=== PATIENT | female | born 1950 | race Caucasian/White ===

== ENCOUNTER 2017-05-29 14:31 | Inpatient (IN) | payer OTHER ==
[~2017-05-29] VITALS: Ht 161.3 cm; Wt 109.6 kg
[~2017-05-29 14:31] MED LIST: ARICEPT5 MG PO; ASPIR 8181 MG PO; CO Q1060 MG PO; CYMBALTA30 MG PO; FUROSEMIDE40 MG PO; IRBESARTAN150 MG PO; METFORMIN HCL500 M2 PO; METOPROLOL TART50 MG PO; MONTELUKAST SOD10 MG PO; PRO AIR INH; PROBIOTIC & AC1 EACH PO; TOVIAZ8 MG PO
--- OUTSIDE RECORDS SUMMARY | 2017-05-29 14:34 | XMS REPORT | Clinical Summary ---
Author Author [facility] Organization [facility] Address Unknown Phone Unavailable Care Team Providers Care Senior Contract Specialist Name Role Phone Yessenia Marquez MD PCP Allergies Active Allergy Reactions Severity Noted Date Comments Codeine GI Intolerance 02/11/2017 Penicillins Rash Low 02/11/2017 Sulfa (Sulfonamide Rash Low 02/11/2017 Antibiotics) Current Medications Prescription Sig. Disp. Refills Start End Date Status Date busPIRone (BUSPAR) 7.5 MG Take 7.5 mg by mouth once 5 01/15/20 Active tablet daily. 17 cefuroxime (CEFTIN) 500 Take 500 mg by mouth 0 12/21/19 Active MG tablet every 12 (twelve) hours. 17 donepezil (ARICEPT) 5 MG 02/07/20 Active tablet 17 doxazosin (CARDURA) 4 MG Take 4 mg by mouth once 0 11/28/19 Active tablet daily. 17 DULoxetine (CYMBALTA) 60 Take 60 mg by mouth 3 01/09/20 Active MG capsule nightly. 17 TOVIAZ 8 mg tablet TAKE ONE (1) TABLET(S) BY 2 11/07/19 Active extended release 24 hr MOUTH DAILY. 17 irbesartan (AVAPRO) 150 Take 150 mg by mouth once 3 01/15/20 Active MG tablet daily. 17 metoprolol succinate XL Take 50 mg by mouth 5 01/15/20 Active (TOPROL-XL) 50 mg 24 hr nightly. 17 tablet phenazopyridine TAKE 1 TABLET BY MOUTH 3 0 12/21/19 Active (PYRIDIUM) 100 MG tablet TIMES A DAY AFTER MEALS 17 tolterodine (DETROL) 1 MG Take 1 mg by mouth once 0 01/24/20 Active tablet daily. 17 Active Problems No known active problems Encounters Date Type Specialty Care Team Description 04/24/2017 Telephone Obstetrics and Gynecology Wale Bailey MD 03/14/2017 Office Visit Urogynecology Wale Bailey MD Rectocele (Primary Dx); Mixed stress and urge urinary incontinence; Enterocele 02/11/2017 Hospital Radiology Ignacio Adrian MD Encounter 02/11/2017 Office Visit Neurosurgery Ignacio Adrian MD Status post lumbar spinal fusion (Primary Dx); Stress incontinence in female 02/11/2017 Procedure Pass Radiology 02/11/2017 Ancillary Radiology Ignacio Adrian MD Orders after 05/28/2016 Social History Tobacco Use Types Packs/Day Years Used Date Never Smoker Smokeless Tobacco: Never Used Alcohol Use Drinks/Week oz/Week Comments No Sex Assigned at Date Recorded Not on file Last Filed Vital Signs Vital Sign Reading Time Taken Blood Pressure 136/72 03/14/2017 10:44 AM TRAVEL MANAGER Pulse 80 03/14/2017 10:44 AM TRAVEL MANAGER Temperature 36.4 C (97.6 F) 03/14/2017 10:44 AM TRAVEL MANAGER Respiratory Rate - - Oxygen Saturation - - Inhaled Oxygen - - Concentration Weight 107 kg (235 lb) 03/14/2017 10:44 AM TRAVEL MANAGER Height 160 cm (5' 3") 03/14/2017 10:44 AM TRAVEL MANAGER Body Mass Index 41.63 03/14/2017 10:44 AM TRAVEL MANAGER Plan of Treatment Date Type Specialty Care Team Description 07/23/2017 Clinical Urogynecology Support 07/23/2017 Procedure visit Urogynecology Wale Bailey MD [address] [facility] [address] [place] [address] [phone] 08/12/2017 Surgery Obstetrics and Gynecology Wale Bailey MD COLPOPEXY, SACROSPINOUS [address] [facility] [address] REPAIR, [address] [place] [address] PROCEDURE [phone] 08/12/2017 Procedure Pass Obstetrics and Gynecology 08/12/2017 [facility] Obstetrics and Gynecology Wale Bailey MD Encounter [address] [facility] [address] [place] [address] [phone] Health Maintenance Due Date Last Done Comments PAP SMEAR 1973 COLONOSCOPY 2002 MAMMOGRAM 2002 ZOSTER VACCINE 2012 INFLUENZA VACCINE 09/24/2017 Results * POC urinalysis dipstick (03/14/2017 11:11 AM) Component Value Ref Range Color urine, POC Dark Yellow Clarity urine, POC Clear Glucose urine, POC Negative Negative Bilirubin urine, POC Negative Negative Ketones urine, POC Negative Negative Specific gravity urine, 1.010 1.005 - 1.030 POC Blood urine, POC Negative Negative pH urine, POC 5.0 5.0, 5.5, 6.0, 6.5, 7.0, 7.5, 8.0, 8.5 Protein urine, POC Negative Negative Urobilinogen urine, POC <2.0 <2.0 Nitrite urine, POC Negative Negative Leukocyte esterase urine, Trace (A) Negative POC Specimen Performing Laboratory Urine * Measure post void residual (03/14/2017) Component Value Ref Range Total volume, urine 15 ML * MRI Spine External Study (01/15/2017 12:41 PM) Specimen Performing Laboratory [address] [address] Narrative This exam was not acquired at a [facility] facility and has not been interpreted by a [facility] Provider.The exam was imported into our imaging system for comparisons purposes. after 05/28/2016 Insurance Payer Benefit Subscriber ID Type Phone Address Plan / Group AETNA AETNA xxxxxxxxxx HMO HMO,POS,EP O, [place] [address] Home:
--- OUTSIDE RECORDS SUMMARY | 2017-05-29 14:35 | XMS REPORT | Clinical Summary ---
Author Author [facility]ed [facility] Organization [facility] Address Unknown Phone Unavailable Care Team Providers Care Mill Dresser Name Role Phone Yessenia Marquez MD PCP [...] Taken Blood Pressure 136/72 03/14/2017 10:44 AM LAN MANAGER Pulse 80 03/14/2017 10:44 AM LAN MANAGER Temperature 36.4 C (97.6 F) 03/14/2017 10:44 AM LAN MANAGER Respiratory Rate - - Oxygen Saturation - - Inhaled Oxygen - - Concentration Weight 107 kg (235 lb) 03/14/2017 10:44 AM LAN MANAGER Height 160 cm (5' 3") 03/14/2017 10:44 AM LAN MANAGER Body Mass Index 41.63 03/14/2017 10:44 AM LAN MANAGER Plan of Treatment Date Type Specialty Care Team Description 07/23/2017 Clinical Urogynecology Support 07/23/2017 Procedure visit Urogynecology Wale Bailey MD [address] [facility] [address] [place] [address] [phone] 08/12/2017 Surgery Obstetrics and Gynecology Wale Bailey MD COLPOPEXY, SACROSPINOUS [address] [facility] [address] REPAIR, [address]/ [place] [address] PROCEDURE [phone] 08/12/2017 Procedure Pass Obstetrics and Gynecology 08/12/2017 [facility] Obstetrics and Gynecology Wale Bailey MD Encounter [address] [facility] [address] [place] [address] [phone] Health Maintenance Due Date Last Done Comments [...] Study (01/15/2017 12:41 PM) Specimen Performing Laboratory [address] [address] Narrative This exam was not acquired at a [facility] facility and has not been interpreted by a [facility] Provider.The exam was imported into our imaging system for comparisons purposes. after 05/28/2016 Insurance Payer Benefit Subscriber ID Type Phone Address Plan / Group AETNA AETNA xxxxxxxxxx HMO HMO,POS,EP O, [place] [address] Home:
--- NOTE | 2017-05-29 15:14 | Diagnostic Imaging Report ---
PROCEDURE: A single AP view of the chest. COMPARISON: None. INDICATIONS: syncope FINDINGS: Lines/tubes: None. Lungs: The lungs are well inflated and clear. There is no evidence of pneumonia or pulmonary edema. Pleura: There is no pleural effusion or pneumothorax. Heart and mediastinum: The heart and the mediastinum are unremarkable. Bones: No acute bony abnormality. IMPRESSION: No acute cardiopulmonary disease. Dictated by: Sher Leon M.D. on 05/29/2017 at 15:14 Electronically approved by: Sher Leon M.D. on 05/29/2017 at 15:14
[2017-05-29 15:49] LABS: ALANINE AMINOTRANSFERASE 23 IU/L (0-55); ALBUMIN 3.7 g/dL (3.5-5.0); ALKALINE PHOSPHATASE 85 IU/L (40-150); BLOOD UREA NITROGEN 13 mg/dL (7-26); BUN/CREATININE RATIO 19 (6-25); CALCIUM 9.6 mg/dL (8.4-10.2); CARBON DIOXIDE 22 mmol/L (22-29); CHLORIDE 103 mmol/L (98-107); CREATINE KINASE 58 IU/L (29-168); CREATININE, SERUM 0.67 mg/dL (0.57-1.11); EST GLOMERULAR FILTRATION RATE > 60 ML/MIN (60-); GLUCOSE 95 mg/dL (74-118); SODIUM 136 mmol/L (136-145)
[2017-05-29 15:56] LABS: BILIRUBIN,URINE NEGATIVE (NEGATIVE); CLARITY,URINE CLEAR (CLEAR); COLOR,URINE YELLOW (YELLOW); KETONES,URINE NEGATIVE (NEGATIVE); LEUKOCYTE ESTERASE ,URINE TRACE (NEGATIVE); NITRITE,URINE NEGATIVE (NEGATIVE); PROTEIN,URINE DIPSTICK NEGATIVE (NEGATIVE); URINE UROBILINOGEN 0.2 mg/dL (0.2 - 1)
[2017-05-29 16:09] LABS: BACTERIA,URINE FEW /HPF; EPITHELIAL CELLS,URINE FEW /LPF; WBC,URINE (MAN) 0-5 /HPF (0-5)
[2017-05-29 16:15] LABS: BASOPHILS # (AUTO) 0.1 (0.0-0.1); BASOPHILS % 0.6 % (0.0-1.0); EOSINOPHILS # (AUTO) 0.2 (0.0-0.4); EOSINOPHILS % 2.3 % (0.0-6.0); HEMATOCRIT 39.3 % (34.2-44.1); HEMOGLOBIN 13.3 g/dL (12.0-16.0); LYMPHOCYTES # (AUTO) 1.6 (1.0-3.2); MEAN CORPUSCULAR HEMOGLOBIN 29.2 pg (28-32); MEAN CORPUSCULAR HGB CONC 33.8 g/dL (31-35); MEAN CORPUSCULAR VOLUME 86.2 fL (81-99); MONOCYTES # (AUTO) 0.7 (0.2-0.8); MONOCYTES % 7.4 % (4.4-11.3); NEUTROPHILS # (AUTO) 6.3 (2.1-6.9); NEUTROPHILS % 71.4 % (38.7-80.0); PLATELET COUNT 280 x10e3/uL (140-360); RED BLOOD COUNT 4.56 x10e6/uL (3.6-5.1); RED CELL DISTRIBUTION WIDTH 12.8 % (11.7-14.4)
--- NOTE | 2017-05-29 16:15 | Diagnostic Imaging Report ---
Exam: Head CT without contrast History: Passed out at work Comparison studies: None Technique: Axial images were obtained from the skull base to the vertex. Coronal and sagittal images reconstructed from the axial data. Intravenous contrast: None Findings: Scalp: No abnormalities. Bones: No fractures, blastic or lytic lesions. Brain sulci: Appropriate for age. Ventricles: Normal in size and configuration. No hydrocephalus. Extra-axial spaces: No masses, no fluid collection. Parenchyma: No abnormal densities. No masses, acute hemorrhage, acute or chronic vascular insults. Sellar/suprasellar region: No abnormalities. Craniocervical junction: Patent foramen magnum. No Chiari one malformation. IMPRESSION: No acute abnormalities. Signed by: Dr. Zachariah Alberts M.D. on 05/29/2017 4:12 PM
[2017-05-29 16:18] LABS: INR 1.11; PROTHROMBIN TIME 13.5 seconds (11.9-14.5)
[2017-05-29 16:19] LABS: PARTIAL THROMBOPLASTIN TIME 27.8 seconds (23.8-35.5)
[2017-05-29 16:33] LABS: ALANINE AMINOTRANSFERASE 20 IU/L (0-55); ALBUMIN 3.4 g/dL (3.5-5.0); ALBUMIN/GLOBULIN RATIO 1.2 (0.8-2.0); ALKALINE PHOSPHATASE 77 IU/L (40-150); ANION GAP 12.9 mmol/L (8-16); BLOOD UREA NITROGEN 13 mg/dL (7-26); BUN/CREATININE RATIO 20 (6-25); CALCIUM 9.3 mg/dL (8.4-10.2); CARBON DIOXIDE 25 mmol/L (22-29); CHLORIDE 103 mmol/L (98-107); CREATININE, SERUM 0.66 mg/dL (0.57-1.11); EST GLOMERULAR FILTRATION RATE > 60 ML/MIN (60-); GLUCOSE 106 mg/dL (74-118); POTASSIUM 3.9 mmol/L (3.5-5.1); SODIUM 137 mmol/L (136-145)
[2017-05-29] MEDS ORDERED: SODIUM CHLORIDE 0.9% 1000ML 1,000 ML IV STA (16:42)
[2017-05-29] MEDS ORDERED: SODIUM CHLORIDE FLUSH 10 ML SYR INJ PRN (18:30)
[2017-05-29] MEDS ORDERED: ONDANSETRON HCL INJ 2 MG/ML VIAL IV PRN (18:30)
[2017-05-29] MEDS ORDERED: ACETAMINOPHEN 325 MG TAB PO PRN (18:45)
--- OUTSIDE RECORDS SUMMARY | 2017-05-29 18:55 | XMS REPORT ---
Author Author [facility] Address Unknown Phone Unavailable Care Team Providers Care Rack Room Worker Name Role Phone ALFONSO DAVALOS Unavailable Unavailable Problems This patient has no known problems. Allergies, Adverse Reactions, Alerts This patient has no known allergies or adverse reactions. Medications This patient has no known medications. Results Test Description Test Time Test Comments Text Results Atomic Results Result Comments CHEST SINGLE (PORTABLE) [place] [address] Patient Name: RICHARD BLACKWELL MR #: [id number] : 1950 Age/Sex: 66/F Req #: [id number] Adm Physician: Ordered by: ALFONSO DAVALOS MD Report #: [id number] Location: ER Room/Bed: Procedure: [id number] DX/CHEST SINGLE (PORTABLE) Exam Date: Exam Time: REPORT STATUS: Signed PROCEDURE: A single AP view of the chest. COMPARISON: None. INDICATIONS: syncope FINDINGS: Lines/tubes: None. Lungs: The lungs are well inflated and clear. There is no evidence of pneumonia or pulmonary edema. Pleura : There is no pleural effusion or pneumothorax. Heart and mediastinum: The heart and the mediastinum are unremarkable. Bones: No acute bony abnormality. IMPRESSION: No acute cardiopulmonary disease. Dictated by: Sher Hearn M.D. on 05/29/2017 at 15:14 Electronically approved by: Sher Hearn M.D. on 05/29/2017 at 15:14 Dictated By: SHER HEARN MD 1514 COPY TO: ALFONSO DAVALOS MD CT BRAIN WO [place] [address] Patient Name: RICHARD BLACKWELL MR #: [id number] : 1950 Age/Sex: 66/F Req #: [id number] Adm Physician: Ordered by: ALFONSO DAVALOS MD Report #: [id number] Location: Room/Bed: Procedure: [id number] CT/CT BRAIN WO Exam Date: 05/29/17 Exam Time: 1455 REPORT STATUS: Signed Exam: Head CT without contrast History: Passed out at work Comparison studies: None Technique: Axial images were obtained from the skull base to the vertex. Coronal and sagittal images reconstructed from the axial data. Intravenous contrast: None Findings: Scalp: No abnormalities. Bones: No fractures, blastic or lytic lesions. Brain sulci: Appropriate for age. Ventricles: Normal in size and configuration. No hydrocephalus. Extra-axial spaces: No masses, no fluid collection. Parenchyma: No abnormal densities. No masses, acute hemorrhage, acute or chronic vascular insults. Sellar/suprasellar region: No abnormalities. Craniocervical junction: Patent foramen magnum. No Chiari one malformation. IMPRESSION: No acute abnormalities. Signed by: Dr. Isa Alberts M.D. on 05/29/2017 4:12 PM Dictated By: ISA ALBERTS MD 1612 Transcribed By: KLARISSA sung 05/29/17 1612 COPY TO: ALFONSO DAVALOS MD
--- OUTSIDE RECORDS SUMMARY | 2017-05-29 18:55 | XMS REPORT | Clinical Summary ---
Author Author [facility] Organization [facility] Address Unknown Phone Unavailable Care Team Providers Care Electrician Technician Name Role Phone Yessenia Marquez MD PCP [...] Taken Blood Pressure 136/72 03/14/2017 10:44 AM CYLINDRICAL MIXER Pulse 80 03/14/2017 10:44 AM CYLINDRICAL MIXER Temperature 36.4 C (97.6 F) 03/14/2017 10:44 AM CYLINDRICAL MIXER Respiratory Rate - - Oxygen Saturation - - Inhaled Oxygen - - Concentration Weight 107 kg (235 lb) 03/14/2017 10:44 AM CYLINDRICAL MIXER Height 160 cm (5' 3") 03/14/2017 10:44 AM CYLINDRICAL MIXER Body Mass Index 41.63 03/14/2017 10:44 AM CYLINDRICAL MIXER Plan of Treatment Date Type Specialty Care Team Description 07/23/2017 Clinical Urogynecology Support 07/23/2017 Procedure visit Urogynecology Wale Bailey MD [address] [facility] [address] [place] [address] [phone] 08/12/2017 Surgery Obstetrics and Gynecology Wale Bailey MD COLPOPEXY, SACROSPINOUS [address] [facility] [address]PA[address], [address] [place] [address] PROCEDURE [phone] 08/12/2017 Procedure Pass Obstetrics and Gynecology 08/12/2017 [facility] Obstetrics and Gynecology Wale Bailey MD Encounter [address] [facility] [address] [place] [address] [phone] Health Maintenance Due Date Last Done Comments [...] Study (01/15/2017 12:41 PM) Specimen Performing Laboratory [address] [address] Narrative This exam was not acquired at a [facility] facility and has not been interpreted by a [facility] Provider.The exam was imported into our imaging system for comparisons purposes. after 05/28/2016 Insurance Payer Benefit Subscriber ID Type Phone Address Plan / Group AETNA AETNA xxxxxxxxxx HMO HMO,POS,EP O, [place] [address] Home:
[2017-05-29 21:30] VITALS: BP 162/74
[2017-05-29 22:00] VITALS: BP 162/74
[2017-05-30] VITALS (7 sets, daily range): BP systolic 122–147; BP diastolic 54–73
[2017-05-30 07:42] LABS: CHOL/HDL RATIO 4.3 (3.0-3.6); MAGNESIUM 1.9 MG/DL (1.3-2.1); PHOSPHORUS 2.4 MG/DL (2.3-4.7)
--- NOTE | 2017-05-30 13:08 | Diagnostic Imaging Report ---
PROCEDURE:CT CHEST WITH CONTRAST COMPARISON:None. INDICATIONS:Syncope; possible pulmonary embolism. TECHNIQUE:Pulmonary artery telemetry CT chest after administration of 60 mL Isovue-370 intravenous contrast. Multiplanar reformatted images. DLP: 580.46 FINDINGS: Lungs: Normal Airways: Normal Pleura: Normal Lymph nodes: Normal Pulmonary arteries: No filling defects. Normal caliber. Thoracic aorta and great vessels: Normal caliber. Retroesophageal right subclavian artery. Heart and pericardium: Normal. Coronary arteries grossly unremarkable. Subdiaphragmatic organs: Normal Skeleton: Mild multilevel degenerative disc disease not unexpected for patient age. Soft tissues: Normal CONCLUSION: 1. No evidence of pulmonary embolism or other conspicuous etiology for syncope. 2. Aberrant origin of the right subclavian artery. The artery extends retroesophageal (normal variant). Dictated by: Ángel Page M.D. on 05/30/2017 at 13:08 Electronically approved by: Ángel Page M.D. on 05/30/2017 at 13:08
--- NOTE | 2017-05-30 13:42 | Consultation ---
DATE OF CONSULTATION: May 30, 2017 REASON FOR CONSULTATION: Syncope, bradycardia. CHIEF COMPLAINT: Syncope. HISTORY OF PRESENT ILLNESS: This is a 66-year-old female with history of hypertension, hyperlipidemia, IBS, ERIKA with use of CPAP, questionable hypothyroidism not on therapy, depression, fibromyalgia, and memory impairment. Patient presents to [facility] ER after having a syncopal episode while at work. Apparently, the patient was at work and started to feel strange in which she, according to family, passed out. Apparently the episode lasted a few seconds. No reports of palpitations prior to the episode or any incontinence post episode. Apparently the patient was in the ER, and the ER nurse mentioned that the heart rate was noted to decrease into the 30s for a few seconds and then came back up. Currently, the patient is in the room in no acute distress on tele, sinus rhythm thus far. No reports of chest pain, palpitations, orthopnea or PND reported. PAST MEDICAL HISTORY: Hypertension, hyperlipidemia, ERIKA, hypothyroidism, depression, fibromyalgia, memory impairment and IBS. PAST SURGICAL HISTORY: Gwen, appendectomy, bladder suspension, tubal ligation, hysterectomy, tonsillectomy, lumbar laminectomy. FAMILY HISTORY: Mother at the age of 72. Apparently had a history of CAD. Also history of dextrocardia. Father at the age of 77, apparently had history of CAD and Parkinson's. SOCIAL HISTORY: , 3 kids, healthy. 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 Denies any alcohol or tobacco use. ALLERGIES: PENICILLIN, SULFA, CODEINE. SHE IS ALSO LACTOSE INTOLERANT. HOME MEDICATIONS 1. Aspirin 81 mg once a day. 2. Aricept 5 mg once a day. 3. Cymbalta 60 mg daily. 4. Lasix 40 mg daily. 5. Irbesartan 150 mg daily. 6. Apparently she is using metformin 500 mg daily. 7. Metoprolol 50 mg daily. REVIEW OF SYSTEMS GENERAL: Denies any weight changes, any fatigue, weakness, fevers, chills, night sweats. SKIN: No rashes or sores. HEENT: No vision changes. No headache. No blurry vision. No hearing loss, vertigo, tinnitus, earaches. Positive for some nasal stuffiness and itching. No epistaxis. Positive for sore throat. CARDIAC: No chest pain. No palpitations. Positive for dyspnea on exertion. No orthopnea. No PND. RESPIRATORY: Positive for dyspnea on exertion. No coughing or wheezing. No hemoptysis. GI: Good appetite. No nausea or vomiting. Positive for diarrhea chronic. Denies any melena, hematemesis, hematochezia. URINARY: Positive for frequency and urgency. No hematuria. VASCULAR: Positive for lower extremity edema. MUSCULOSKELETAL: Denies any muscle weakness. Positive for generalized joint pains, back pains, knee pains. NEUROLOGIC: Denies any tingling, tremors, weakness, paralysis. Positive for syncope. HEMATOLOGY: Denies any bruising or bleeding. ENDOCRINE: Denies any heat or cold intolerance, any polyuria, polydipsia or polyphagia. PHYSICAL EXAMINATION VITALS: Height 63 inches, weight 241 pounds. Temp 96.3, pulse 74, respiratory rate 16, blood pressure 122/54. Pulse ox 100 on room air. GENERAL: Reliable informant. Appears her stated age. SKIN: No rashes or bruises noted. HEENT: Normocephalic. Pupils are equal and reactive. Extraocular motor intact. Trachea is midline. No thyromegaly noted. No JVD. Oral mucosa pink. HEART: Regular rate and rhythm. No murmurs. No clicks. LUNGS: Bilateral breath sounds clear to auscultation. ABDOMEN: Soft, nontender. Obese. No organomegaly noted. MUSCULOSKELETAL: Good muscle strength throughout. Slight lower extremity swelling. VASCULAR: There are +2 radial pulses bilaterally and +1 DP and PT pulses bilaterally. NEUROLOGIC: Cranial nerves II through XII intact. LABS: Sodium 137, potassium 3.9, chloride 103, BUN 13, creatinine 0.66, glucose 106. Troponin less than 0.001. Hemoglobin 13, hematocrit 39, platelets 280. IMAGING: CT brain showing no acute abnormalities. Chest x-ray showing no acute cardiopulmonary disease. EKG showing normal sinus rhythm. ASSESSMENT 1. Syncopal episode. Appears to be vasovagal in nature. 2. Hypertension. 3. Hyperlipidemia. 4. Obesity. 5. Memory impairment. 6. Fibromyalgia. 7. Obstructive sleep apnea. PLAN 1. The patient presents with a syncopal episode. It seems to be vasovagal in nature. However, patient prior to the episode describes a strange sensation in her upper palate. 2. Will continue the patient on telemetry monitoring to assess any abnormalities. 3. Will obtain a TSH. 4. Check echo. 5. Of course, we will stop her metoprolol. Also suggest that we stop the Aricept. 6. Suggest the patient needs to have a neurological examination or neuro consult. 7. Will monitor the patient and adjust cardiac therapy as course dictates. Thank you very much for this consult. Dictated by: Zachariah Varghese NP Job#: [id number]
[2017-05-30] MEDS ORDERED: SODIUM CHLORIDE 0.9% 50ML 50 ML ONE (15:39)
[2017-05-30] MEDS ORDERED: IOPAMIDOL 370 MG/ML 200 ML INFUS..BTL INJ ONE (15:39)
--- NOTE | 2017-05-30 16:28 | Discharge Summary ---
DISCHARGE DIAGNOSES 1. Syncope, more likely vasovagal. 2. Hypertension, controlled. 3. Episode of bradycardia, most likely secondary to beta francisco. HISTORY OF PRESENT ILLNESS: Ms. Pena is a pleasant 66-year-old lady well known to me. She presented to the emergency department after an episode of some collapse at work place. She was out for a few seconds and had a repeat episode while being evaluated in the emergency department. At this time, there was witnessed bradycardia and mild drop in blood pressure. This was not documented on EKG tracing. She was admitted to the hospital for further evaluation. After admission. she was monitored on telemetry. There was no evidence of further bradycardia or any evidence of heart block. The 12-lead EKG is showing a normal ME interval. Evaluation was requested with Dr. Alfaro and he recommended discontinuation of beta francisco and the donepezil which the patient has been taking for some period of time and believe that the episode was more likely vasovagal in nature. Due to history of recent road travel, she had a CT angiogram of the chest, which was negative for PE and she had a venous Doppler which was also negative for any signs of deep vein thrombosis. Since admission the patient has been asymptomatic. She is being discharged home in stable condition and she is asked to discontinue metoprolol and donepezil and to follow up at the office in one week's time and to continue her cardiology workup as an outpatient with Dr. Alfaro. SCOTTIE ODEN MD Job#: [id number] [place]
[2017-05-30] MEDS ORDERED: DONEPEZIL HCL 5 MG TAB PO SCH (21:00)
[2017-05-31] MEDS ORDERED: ASPIRIN 81 MG CHEW TAB PO SCH (09:00)
[2017-05-31] MEDS ORDERED: DULOXETINE HCL 30 MG DELAYED RELEASE PO SCH (09:00)
== END 2017-05-30 15:46 | disposition home or self-care (01) | DRG 309 ==
LOC: ER 14:33 → ERHOLD 18:52 → MED/SURG 21:21
PROVIDERS: ADMIT Internal Medicine; ATTEND Internal Medicine
DX: R00.1 Bradycardia, unspecified (principal); Z68.41 Body mass index [BMI] 40.0-44.9, adult; F06.8 Other specified mental disorders due to known physiological condition; I10 Essential (primary) hypertension; T44.7X5A Adverse effect of beta-adrenoreceptor antagonists, initial encounter; K58.9 Irritable bowel syndrome, unspecified; G47.33 Obstructive sleep apnea (adult) (pediatric); E03.9 Hypothyroidism, unspecified; M79.7 Fibromyalgia; E66.9 Obesity, unspecified
CPT/HCPCS: 36415; 70450; 71045; 71260; 80053; 80061; 81001; 82550; 82553; 83036; 83735; 84100; 84443; 84484; 85025; 85610; 85730; 93005; 93306; 93970; 99285; J7030; Q9967

== ENCOUNTER 2017-09-19 20:41 | Emergency (ER) | payer MEDICARE, OTHER ==
[~2017-09-19] VITALS: Ht 161.3 cm; Wt 109.3 kg
[2017-09-19 21:32] LABS: BASOPHILS # (AUTO) 0.1 (0.0-0.1); BASOPHILS % 0.7 % (0.0-1.0); CLARITY,URINE SL CLOUDY (CLEAR); COLOR,URINE YELLOW (YELLOW); EOSINOPHILS # (AUTO) 0.1 (0.0-0.4); EOSINOPHILS % 1.7 % (0.0-6.0); HEMATOCRIT 39.2 % (34.2-44.1); HEMOGLOBIN 13.4 g/dL (12.0-16.0); LEUKOCYTE ESTERASE ,URINE 1+ (NEGATIVE); LYMPHOCYTES # (AUTO) 1.8 (1.0-3.2); LYMPHOCYTES % 21.5 % (18.0-39.1); MEAN CORPUSCULAR HEMOGLOBIN 29.1 pg (28-32); MEAN CORPUSCULAR HGB CONC 34.2 g/dL (31-35); MONOCYTES # (AUTO) 0.6 (0.2-0.8); MONOCYTES % 7.3 % (4.4-11.3); NEUTROPHILS # (AUTO) 5.7 (2.1-6.9); NEUTROPHILS % 68.3 % (38.7-80.0); NITRITE,URINE NEGATIVE (NEGATIVE); PLATELET COUNT 335 x10e3/uL (140-360); RED BLOOD COUNT 4.61 x10e6/uL (3.6-5.1); RED CELL DISTRIBUTION WIDTH 12.9 % (11.7-14.4)
[2017-09-19 21:33] LABS: BILIRUBIN,URINE NEGATIVE (NEGATIVE); KETONES,URINE NEGATIVE (NEGATIVE); PROTEIN,URINE DIPSTICK TRACE (NEGATIVE); URINE UROBILINOGEN 0.2 mg/dL (0.2 - 1)
[2017-09-19 21:40] LABS: INR 1.08; PARTIAL THROMBOPLASTIN TIME 26.9 seconds (23.8-35.5); PROTHROMBIN TIME 13.2 seconds (11.9-14.5)
[2017-09-19 21:44] LABS: BACTERIA,URINE MANY /HPF; EPITHELIAL CELLS,URINE FEW /LPF
[2017-09-19 21:47] LABS: ALANINE AMINOTRANSFERASE 18 IU/L (0-55); ALBUMIN 3.7 g/dL (3.5-5.0); ALBUMIN/GLOBULIN RATIO 1.1 (0.8-2.0); ALKALINE PHOSPHATASE 91 IU/L (40-150); ANION GAP 15.5 mmol/L (8-16); BLOOD UREA NITROGEN 11 mg/dL (7-26); BUN/CREATININE RATIO 15 (6-25); CALCIUM 9.8 mg/dL (8.4-10.2); CARBON DIOXIDE 25 mmol/L (22-29); CHLORIDE 103 mmol/L (98-107); CREATINE KINASE 26 IU/L (29-168); CREATININE, SERUM 0.75 mg/dL (0.57-1.11); EST GLOMERULAR FILTRATION RATE > 60 ML/MIN (60-); GLUCOSE 119 mg/dL (74-118); POTASSIUM 3.5 mmol/L (3.5-5.1); SODIUM 140 mmol/L (136-145)
--- NOTE | 2017-09-19 21:52 | Diagnostic Imaging Report ---
Exam: Head CT without contrast History: Dizziness Comparison studies: Head CT 05/29/2017 Technique: Axial images were obtained from the skull base to the vertex. Coronal and sagittal images reconstructed from the axial data. Intravenous contrast: None Findings: Scalp: No abnormalities. Bones: No fractures, blastic or lytic lesions. Brain sulci: Mildly prominent but age appropriate Ventricles: Mild compensatory dilatation. No hydrocephalus. Extra-axial spaces: No masses, no fluid collection. Parenchyma: No abnormal densities. No masses, hemorrhage, acute or chronic vascular insults. Sellar/suprasellar region: No abnormalities. Craniocervical junction: Patent foramen magnum. No Chiari one malformation. IMPRESSION: 1. No acute intracranial abnormalities. 2. No changes from the previous head CT of 05/29/2017. Signed by: Dr. Zachariah Alberts M.D. on 09/19/2017 9:49 PM
--- NOTE | 2017-09-19 22:11 | Diagnostic Imaging Report ---
EXAM: CHEST 2 VIEWS, PA and lateral INDICATION: Dizziness COMPARISON: PA and lateral view of the chest January 12, 2008 FINDINGS: LINES/TUBES: None LUNGS: No consolidations or edema. PLEURA: No effusions or pneumothorax. HEART AND MEDIASTINUM: Normal size and contour. BONES AND SOFT TISSUES: No acute findings. IMPRESSION: No acute thoracic abnormality. Signed by: Dr. Marita Alcaraz M.D. on 09/19/2017 10:08 PM
[2017-09-19] MEDS ORDERED: CEFTRIAXONE SOD 1 GM VIAL IV ONE (22:30)
[2017-09-19] MEDS ORDERED: CEFTRIAXONE SOD 1 GM VIAL ONE (22:30)
== END 2017-09-19 23:06 | disposition home or self-care (01) ==
LOC: ER 20:41
DX: R42 Dizziness and giddiness (principal); N30.91 Cystitis, unspecified with hematuria; I10 Essential (primary) hypertension; J45.909 Unspecified asthma, uncomplicated; E78.00 Pure hypercholesterolemia, unspecified; F41.9 Anxiety disorder, unspecified; F32.9 Major depressive disorder, single episode, unspecified
CPT/HCPCS: 36415; 70450; 71046; 80053; 81001; 82550; 82553; 84484; 85025; 85610; 85730; 93005; 99284; J0696